=== PATIENT | male | born 1950 | race Caucasian/White ===

== ENCOUNTER 2022-05-28 15:45 | Emergency (ER) | payer MEDICARE, OTHER, SELFPAY ==
[2022-05-28 15:53] VITALS: BP 117/65; PULSE 72; RESP 14; TEMP 36.6; O2SAT 96
--- NOTE | 2022-05-28 17:30 | DI.RAD_ITS ---
Exam(s) XR FOOT LT COMPLETE XR ANKLE LT COMPLETE EXAM: XR ANKLE LT COMPLETE CLINICAL HISTORY: slipped, rotational injury TECHNIQUE: COMPARISON: CR,XR XR FOOT LT COMPLETE from 05/28/2022 FINDINGS: Three views of the ankle and three views of the foot were obtained. There is no evidence of acute fr acture or dislocation of the ankle or foot. There are degenerative changes of the midfoot. There ar e prominent enthesophytes of plantar fascia and Achilles attachments on calcaneus. IMPRESSION: No evidence of acute fracture. RADIATION DOSE DELIVERED: Total DLP
--- NOTE | 2022-05-28 17:38 | W.ED.GENAD ---
Discharge Plan Disposition Patient Disposition: [facility] ([facility]) [facility] Condition: Good Discharge Details Clinical Impression: Ankle sprain Primary Care Provider: Unknown,Unknown ED Provider: Brooke Rausch Discharge Instructions Instructions: Ankle Sprain (ED) Additional Instructions: Your imaging is reassuring here today. There is some osteoarthritis. However, this is not consistent with the area that you are having discomfort. Your pain is most consistent with ankle sprain. Please encourage rest, ice, elevation. Tylenol as needed for discomfort. Please follow-up with primary care in the next 1 to 2 weeks for reevaluation. If pain persist over the next week, you should have repeat imaging completed. If you develop any new or worsening symptoms to seek care urgently once again. Discharge Data Discharge Date/Time-TO BE ENTERED AT DEPARTURE: 05/28/22 20:22 Medical Decision Making Patient is a pleasant 72-year-old male, [facility] recent right BKA, presenting today with chief complaint of left foot and ankle pain. He reports a prior to arrival he tried to get out of bed to use the restroom when he would out of bed onto the left ankle. He reports that he has a bed to high up and is not using good mechanics to try and put a shoe on. He did not fall directly to the ground, did not strike his head, no loss conscious. Denies pain elsewhere. No radiation of pain. Patient is a diabetic, that is what led to the below-knee amp on the contralateral side. However, he denies any chronic neuropathies with the affected side. Denies any numbness or tingling. On exam, patient appears nontoxic. He is sitting in a wheelchair. BKA appears to be healing well no evidence of infection. He has scheduled follow-up appointment on Tuesday. Exam the left lower extremity shows some swelling over the lateral malleolus and point tenderness over this area. He does have some tenderness over the ATFL. He has no pain to palpation about the foot, particular the midfoot or 5th metatarsal. However, he states that over the fifth metatarsal is where pain has been maximal initially, for this reason I do plan to image both the foot and ankle. Achilles is intact with no tenderness, he has no pain over the proximal fibula. Sensation is intact in the toes no pain elsewhere palpation of the foot or ankle. Patient declines any analgesics. FINDINGS: Bones/joints:? Acute fracture identified. Heel spurs are seen. Soft tissues:? No unusual soft tissue calcifications.? Soft tissue swelling is noted laterally, medially, and anteriorly. IMPRESSION: 1. No acute fracture identified. If symptoms persist or remain concerning, consider follow-up imaging in 7 days or alternative imaging modalities. 2. Soft tissue swelling is noted.? FINDINGS: Bones/joints:? On series 2, is some irregularity proximal shafts of the 3rd and 4th metatarsals which could represent the sequela of older trauma but should be correlated with any concern for subtle acute fractures.? On series 3, there is a 1.2 cm subtle curvilinear density inferior to the base of the 5th metatarsal.? This does not have the same density as surrounding bones.? It could represent some soft tissue calcification but should be correlated with any concern for bony fragment/avulsion injury. There is a well-defined 5 mm curvilinear density in the lateral soft tissues at the level of the 4th proximal IP joint.? This could represent soft tissue calcification but should be correlated with any concern for bony fragment or foreign body.? Skeletal degenerative changes are seen. Soft tissues:? There is dorsal soft tissue swelling. IMPRESSION: 1. On series 2, is some irregularity proximal shafts of the 3rd and 4th metatarsals which could represent the sequela of older trauma but should be correlated with any concern for subtle acute fractures.? 2. On series 3, there is a 1.2 cm subtle curvilinear density inferior to the base of the 5th metatarsal.? This does not have the same density as surrounding bones.? It could represent some soft tissue calcification but should be correlated with any concern for bony fragment/avulsion injury. 3. There is a well-defined 5 mm curvilinear density in the lateral soft tissues at the level of the 4th proximal IP joint.? This could represent soft tissue calcification but should be correlated with any concern for bony fragment or foreign body.? 4. Dorsal soft tissue swelling. Other findings/details as above.? For further evaluation of the above findings, a dedicated CT scan could be considered. The patient has areas that are in question are not consistent with the patient having any discomfort, pt was reevalauated with care over these areas. Patient typically is mobile with a wheelchair. Will encourage rest, ice, elevation. Tylenol as needed for discomfort. Encourage follow-up with primary care in the next 1 to 2 weeks for reevaluation. Return precautions were discussed. Should pain persist over the next week, consider imaging as noted above, she has been completed. I am concerned that putting a boot return to the mobilizer on this patient's foot could potentially make it more detrimental for him to mobilize and as he is largely nonweightbearing, I do not feel that this would greatly improve his discomfort any. We will hold off on any orthopedic devices. He does have orthopedic shoe, per , for affected foot that he was sent home with after recent d/c. also concerned that witness was concerned about knee injury, patient denied any knee pain or had any on exam. Pt transferred back to [facility] via EMS. HPI General Date/Time Provider Initiated Documentation: 05/28/22 16:03. Limitations to Documentation: no limitations. Information obtained by: patient, EMS and RN notes reviewed. History of Present Illness 72 year old M presents to the emergency department with the chief complaint of left ankle pain, described as moderate, with intensity rated at 7. Quality is described as aching, and is localized to the left and lower extremity. Patient reports no radiation. Patient started experiencing this minute(s) and it has been constant. Immobilization improves symptom(s), Movement worsens symptoms . Patient notes no other symptoms.. Patient did receive the following treatments prior to arrival, none Related Data Allergies Allergy/AdvReac Type Severity Reaction Status Date / Time No Known Allergies Allergy Unverified 05/28/22 15:56 General Stated Complaint: Orthopedic SOMMER: 4 Review of Systems Constitutional Constitutional: Reports as per HPI, Denies chills, Denies fever(s) and Denies weakness Musculoskeletal Musculoskeletal: Reports as per HPI and Denies tingling Integumentary/Breasts Skin/Breast: Reports as per HPI, Denies rash and Denies wounds Neurologic Neurologic: Reports as per HPI, Denies tingling, Denies paresthesias and Denies weakness [facility] All Active Problems (Updated 05/28/22 @ 19:42 by KAYLAN Moffett) Ankle sprain (Acute) Social History Smoking/Tobacco Use Status: Former Tobacco Use Smoking risk assessment performed?: Yes Alcohol Intake: current Alcohol Intake frequency: holidays/special occasions only Alcohol type: beer Drug use: Never Substance use type: does not use Do you feel safe at home: Yes Do you feel safe in your relationship?: Yes Exam Const General: cooperative, healthy appearing, comfortable, no acute distress, well developed and well groomed Nutritional Appearance: average body habitus and well nourished Orientation: alert and awake Resp Effort & Inspection: normal respiratory effort, able to speak in complete sentences and no respiratory distress Cardio Rate: regular rate Rhythm: regular rhythm Skin General skin exam: no rashes or lesions noted (incision on contralateral leg appears to be heealing well) Lesions: no lesions Rashes: no rashes Trauma: no lacerations or abrasions Neuro General: patient alert and patient awake Cognition: normal cognition Speech: speech normal Gait: normal gait Motor: muscle tone normal throughout Sensory Exam: no sensory deficits noted Extrem Ankle/foot/toe images: 1. Area of discomfort. Pain over the lateral malleolus and ATFL. No pain over Achilles, anteerior or medial malleolus. No pain oveer the food. Intact capillary refill. No palpable defomrity. No pain oveer 5th metatarsal or midfoot. No pain over proximal fibula or elsewhere over the knee. Psych Appearance: grossly normal and well kempt Mental Status: mental status grossly normal Speech and Movement: speech and movement normal Course Vital Signs Vital signs: Vital Signs Temperature 36.6 C 05/28/22 15:53 Pulse 72 05/28/22 15:53 Respiratory Rate 14 05/28/22 15:53 Blood Pressure 117/65 05/28/22 15:53 Pulse Oximetry 96 05/28/22 15:53 Temperature 36.6 C 05/28/22 15:53 Temperature Source Tympanic 05/28/22 15:53 Pulse 72 05/28/22 15:53 Respiratory Rate 14 05/28/22 15:53 Respiratory Effort Non-Labored 05/28/22 15:56 Blood Pressure 117/65 05/28/22 15:53 Blood Pressure Position Sitting 05/28/22 15:53 Pulse Oximetry 96 05/28/22 15:53 Oxygen Delivery Method Room Air 05/28/22 15:53 Oxygen Flow Rate 0 05/28/22 15:53 Pain Level 7 05/28/22 15:53
--- NOTE | 2022-05-28 19:08 | DI.VRAD_ITS ---
PROCEDURE INFORMATION: Exam: XR Left Ankle Exam date and time: 05/28/2022 6:34 PM Age: 72 years old Clinical indication: Injury or trauma; Blunt trauma; Ankle; Left; Injury date: 05/28/22; Injury details: Slipped, fall, lateral pain TECHNIQUE: Imaging protocol: Radiologic exam of the Left ankle. Views: 3 or more views. COMPARISON: No relevant prior studies available. FINDINGS: Bones/joints: Acute fracture identified. Heel spurs are seen. Soft tissues: No unusual soft tissue calcifications. Soft tissue swelling is noted laterally, medially, and anteriorly. IMPRESSION: 1. No acute fracture identified. If symptoms persist or remain concerning, consider follow-up imaging in 7 days or alternative imaging modalities. 2. Soft tissue swelling is noted. Dictated and Authenticated by: Mirian Villalba MD. Ordering:CESAR Cox MD
--- NOTE | 2022-05-28 19:21 | DI.VRAD_ITS ---
PROCEDURE INFORMATION: Exam: XR Left Foot Exam date and time: 05/28/2022 6:36 PM Age: 72 years old Clinical indication: Injury or trauma; Blunt trauma; Foot; Left; Injury date: 05/28/22; Injury details: Fall, lateral pain TECHNIQUE: Imaging protocol: Radiologic exam of the Left foot. Views: 3 or more views. COMPARISON: CR XR ANKLE LT COMPLETE 05/28/2022 6:34 PM FINDINGS: Bones/joints: On series 2, is some irregularity proximal shafts of the 3rd and 4th metatarsals which could represent the sequela of older trauma but should be correlated with any concern for subtle acute fractures. On series 3, there is a 1.2 cm subtle curvilinear density inferior to the base of the 5th metatarsal. This does not have the same density as surrounding bones. It could represent some soft tissue calcification but should be correlated with any concern for bony fragment/avulsion injury. There is a well-defined 5 mm curvilinear density in the lateral soft tissues at the level of the 4th proximal IP joint. This could represent soft tissue calcification but should be correlated with any concern for bony fragment or foreign body. Skeletal degenerative changes are seen. Soft tissues: There is dorsal soft tissue swelling. IMPRESSION: 1. On series 2, is some irregularity proximal shafts of the 3rd and 4th metatarsals which could represent the sequela of older trauma but should be correlated with any concern for subtle acute fractures. 2. On series 3, there is a 1.2 cm subtle curvilinear density inferior to the base of the 5th metatarsal. This does not have the same density as surrounding bones. It could represent some soft tissue calcification but should be correlated with any concern for bony fragment/avulsion injury. 3. There is a well-defined 5 mm curvilinear density in the lateral soft tissues at the level of the 4th proximal IP joint. This could represent soft tissue calcification but should be correlated with any concern for bony fragment or foreign body. 4. Dorsal soft tissue swelling. Other findings/details as above. For further evaluation of the above findings, a dedicated CT scan could be considered. Dictated and Authenticated by: Mirian Villalba MD. Ordering:CESAR Cox MD
== END 2022-05-28 20:22 | disposition intermediate care facility (04) ==
PROVIDERS: Emergency Provider Physician Assistant
DX: S93.402A Sprain of unspecified ligament of left ankle, initial encounter (principal); E11.9 Type 2 diabetes mellitus without complications; Z87.891 Personal history of nicotine dependence; W19.XXXA Unspecified fall, initial encounter
CPT/HCPCS: 36416; 82962; 99283; 73610; 73630; 99282